=== PATIENT | male | born 1955 | race Caucasian/White ===

== ENCOUNTER 2016-11-10 10:15 | Emergency (ER) | payer OTHER ==
[2016-11-10] MEDS ORDERED: Nitroglycerin 0.4 MG TAB (25 Tab Bottle) ONE (10:29)
[2016-11-10] MEDS ORDERED: Metoprolol Tartrate 50 MG TAB ONE (10:49)
[2016-11-10] MEDS ORDERED: Nitroglycerin 2% Ointment 1 INCH/1 GM Packet ONE (10:49)
[2016-11-10 10:59] LABS: #Basophils 0.1 thou/uL (0.0-0.2); #Eosinphils 0.2 thou/uL (0.0-0.7); #Lymphocytes 4.9 thou/uL (1.20-3.40); #Monocytes 0.8 thou/uL (0.11-0.59); #Neutrophils 6.1 thou/uL (1.40-6.50); %Basophils 1.2 % (0.0-1.0); %Eosinophils 1.7 % (0.0-10.0); %Lymphocytes 40.5 % (21.0-51.0); %Monocytes 6.2 % (0.0-10.0); Hematocrit 43.6 % (42.0-52.0); Mean Platelet Volume 8.1 fL (7.4-10.4); Red Blood Cell (RBC) Count 4.69 mill/uL (4.70-6.10); White Blood Cell (WBC) Count 12.2 thou/uL (4.8-10.8)
[2016-11-10 11:02] LABS: Troponin I Less than 0.010 ng/mL (< 0.028)
--- NOTE | 2016-11-10 11:05 | RAD ---
AP SITTING CHEST ONE VIEW: History: 61-year-old male with chest pain, primarily mid sternal, worse when taking a breath. FINDINGS: Monitor leads overlie the chest. Heart size is normal. Atherosclerosis of the aorta. IMPRESSION: No acute intrathoracic disease. POS: [facility]
[2016-11-10 11:13] LABS: ALT (SGPT) 21 U/L (0-55); AST (SGOT) 26 U/L (5-34); Alkaline Phosphatase 112 U/L (40-150); Anion Gap 16 mmol/L (10-20); BUN (Urea Nitrogen) 7 mg/dL (8.4-25.7); Bilirubin, Total 0.4 mg/dL (0.2-1.2); Calc. Creatinine Clearance 0 mL/min (70-130); Calcium 9.4 mg/dL (7.8-10.44); Carbon Dioxide 21 mmol/L (23-31); Chloride 106 mmol/L (98-107); Estimated GFR-MDRD 78; Globulin 3.3 g/dL (2.4-3.5); Protein, Total 7.4 g/dL (5.8-8.1)
[2016-11-10 11:20] LABS: PTT 33.6 SEC (22.9-36.1); Prothrombin Time 12.9 SEC (12.0-14.7)
--- NOTE | 2016-11-10 12:58 | ERRECORD ---
[facility] EMERGENCY RECORD HPI CHEST PAIN (10:32 AGRE) CHIEF COMPLAINT: Patient presents for evaluation of chest pain. HISTORIAN: History provided by patient, WAS ABOUT TO START A SERVICE AT THE [employer] AND DEVELOPED PAIN IN THE CENTER OF HIS CHEST LIKE A SQUEEZING. THE PAIN DOES NOT RADIATE BUT HE HAD SOB, SWEATING, AND NAUSEA. HX OF HYPERTENSION AND HIGH CHOLESTEROL AND HAS BEEN OUT OF HIS MEDS FOR A MONTH. IS A SMOKER BUT NO ALCOHOL OR DRUGS. THE PAIN IS CONSTANT SINCE STARTING BUT WORST WITH EXERTION. NO HX OF CAD OR EXERTIONS CP OR SOB RECENTLY. HAD ONE EPISODE OFCHEST PAIN 6 YEARS AGO. LOCATION: Symptoms are localized, most severe in substernal area. QUALITY: Pain is dull in nature, described as a sensation of fullness, described as pressure-like. SEVERITY: Maximum severity of symptoms severe, Currently symptoms are severe. TIME COURSE: Sudden onset of symptoms, Symptoms are worsening. ASSOCIATED WITH: Associated with diaphoresis, Associated with nausea, Associated with shortness of breath, No associated trauma, No associated vomiting, Denies any other complaints. EXACERBATED BY: Patient's condition exacerbated by EXERTION. RELIEVED BY: Patient's condition relieved by nothing. RISK FACTORS: Coronary artery disease risk factors, include high cholesterol, include hypertension, include smoking, Thoracic aortic dissection risk factors, include hypertension, No pulmonary embolism risk factors. HEART SCORE: Patients history is Highly Suspicious (2), Patients age is greater than 45 and less than 65 (1), Patient has equal to or greater than 3 risk factors or history of atherosclerotic disease (2). WELLS CRITERIA FOR PE: No clinical signs and symptoms of a DVT (0), Patient does not have, or is likely to not have, a primary diagnosis of PE (0), Patient's heart rate is less than 100 (0), Patient has no history of immobilization within 3 days, nor any surgical history within the past 4 weeks (0), Patient has not had an objectively diagnosed PE or DVT previously (0), Patient does not have hemoptysis (0), Patient has not had treatment for malignancy within the last 6 months, nor palliative (0). ROS (10:35 AGRE) CONSTITUTIONAL: Historian denies chills, denies fever, denies weakness. EYES: Historian denies eye redness, denies vision changes. ENT: Historian denies sore throat, denies stridor. CARDIOVASCULAR: Historian reports chest pain, &a-1R&a+25V*p+0X*[id number]*c202B*c15G*c2P*p-0X&a-25V&a+1R Name: Bull Pratt : 1955 M61 MedRec: [id number] AcctNum: [id number] Prepared: WedNov 10, 2016 14:42 by Interface Page 1 of 5 pMD [facility] EMERGENCY RECORD substernal, no radiation, Historian reports diaphoresis, denies dyspnea on exertion, reports exercise intolerance. RESPIRATORY: Historian denies cough, reports shortness of breath, denies sputum, denies stridor, denies wheezing. GI: Historian denies abdominal pain, denies nausea, denies vomiting. MUSCULOSKELETAL: Historian denies back pain, denies neck pain. SKIN: Historian denies skin changes, denies skin lesions. NEUROLOGIC: Historian denies confusion, denies dizziness, denies focal weakness, denies headache. HEMO/LYMPHATIC: Normal hematologic/lymphatic system review, Historian denies petechiae. PSYCHIATRIC: Negative psychiatric review of systems, Historian denies anxiety. PAST MEDICAL HISTORY (10:23 JPAR) MEDICAL HISTORY: Past medical history includes history of hyperlipidemia, high cholesterol, Past medical history includes history of hypertension, No past medical history, Flu vaccine not up to date, Tetanus immunization up to date, Pneumococcal vaccine not up to date. MALE SURGICAL HISTORY: Laminectomy, back, Surgical history of carpal tunnel surgery, Notes: left, Surgical history of cholecystectomy, Surgical history of hernia repair, Notes 2 surgery, Surgical history of ileostomy. PSYCHIATRIC HISTORY: No previous psychiatric history. SOCIAL HISTORY: Patient denies alcohol use, Patient denies drug use, Patient currently uses tobacco, smokes cigarettes, Lives at home, with family. KNOWN ALLERGIES No Known Drug Allergy CURRENT MEDICATIONS (10:21 JPAR) Ambien: TABLET : Strength - 10 mg : ORAL Patient Dose: once a day. VITAL SIGNS VITAL SIGNS: Pulse: 77, Resp: 1`6, Temp: 97.9 (Oral), Pain: 7, O2 sat: 100, Time: 11/10/2016 10:19. (10:19 JPAR) BP: 181/95, Resp: 16, Time: 11/10/2016 10:21. (10:21 JPAR) BP: 130/80, Pulse: 71, Resp: 12, O2 sat: 99 on 2L Oxygen, Time: 11/10/2016 10:45. (10:45 JPAR) BP: 137/73, Pulse: 67, Resp: 14, Pain: 2, O2 sat: 99 on 2L Oxygen, Time: 11/10/2016 11:00. (11:00 JPAR) BP: 136/76, Pulse: 63, Resp: 15, Pain: 4, O2 sat: 99 on 2L Oxygen, Time: 11/10/2016 11:25. (11:25 JPAR) BP: 140/93, Pulse: 67, Resp: 15, Pain: 4, O2 sat: 99 on 2L Oxygen, Time: &a-1R&a+25V*p+0X*[id number]*c202B*c15G*c2P*p-0X&a-25V&a+1R Name: Bull Pratt : 1955 M61 MedRec: [id number] AcctNum: [id number] Prepared: WedNov 10, 2016 14:42 by Interface Page 2 of 5 pMD [facility] EMERGENCY RECORD 11/10/2016 11:42. (11:42 JPAR) BP: 148/79, Pulse: 62, Resp: 16, Pain: 4, O2 sat: 98 on 2L Oxygen, Time: 11/10/2016 12:33. (12:33 JPAR) PHYSICAL EXAM (10:37 AGRE) CONSTITUTIONAL: Patient appears, in moderate pain distress, CONSTANTLY RUBBING CENTER OF HIS CHEST, Vital signs reviewed, Patient afebrile, Respiratory rate normal, Patient appears non toxic, Patient alert and oriented to person, place and time, NURSES NOTES REVIEWED. HEAD: Head exam included findings of head atraumatic, normocephalic. EYES: Eye exam included findings of eyelids normal to inspection, Extraocular muscles intact, Conjunctiva normal, Sclera normal. ENT: Ear exam normal, Nose exam normal, Mouth exam normal. NECK: Neck exam normal, Neck exam included findings of normal range of motion, no meningeal signs, no cervical adenopathy. RESPIRATORY CHEST: Respiratory and chest exam normal, Respiratory exam included findings of no respiratory distress, Breath sounds clear, No wheezing, No rales, No rhonchi, Breath sounds not diminished. CARDIOVASCULAR: Cardiovascular exam included findings of heart rate regular rate and rhythm, Heart sounds normal, normal S1, normal S2, no murmurs, no rub, no gallop. ABDOMEN MALE: Abdominal exam normal, Abdominal exam included findings of abdomen nontender, Bowel sounds normal, Liver normal, Spleen normal, no distension, no mass. BACK: Back exam normal, Back exam included findings of normal inspection, range of motion normal. UPPER EXTREMITY: Upper extremity exam included findings of inspection normal, Range of motion normal. LOWER EXTREMITY: Lower extremity exam included findings of inspection normal, Range of motion normal, Motor strength normal, Kayla's negative, no edema, no calf tenderness, no palpable cords. NEURO: Neuro exam normal, Neuro exam findings include patient oriented to person, place and time, Speech normal, Gait normal, Memory normal, Cranial nerves intact, no focal motor deficits. SKIN: Skin exam normal, Skin exam included findings of skin warm, dry, and normal in color. LYMPHATIC: Lymphatic exam normal, Lymphatic exam included findings of cervical nodes normal. PSYCHIATRIC: Psychiatric exam normal, Normal affect. EKG INTERPRETATION (10:38 AGRE) 12 LEAD EKG INTERPRETATION: 12 lead EKG interpreted by Emergency Department Physician at time of study, 12 lead EKG shows normal sinus rhythm, Rate (beats per minute): 72, with no ectopics, Conduction normal, [place] normal, NON-SPECIFIC ST AND T CHANGES, BASELINE ARTIFACT. &a-1R&a+25V*p+0X*[id number]*c202B*c15G*c2P*p-0X&a-25V&a+1R Name: Bull Pratt : 1955 M61 MedRec: [id number] AcctNum: [id number] Prepared: WedNov 10, 2016 14:42 by Interface Page 3 of 5 pMD [facility] EMERGENCY RECORD RADIOLOGYINTERPRETATION (11:15 AGRE) CIRCUIT JUDGE: Preliminary review of x-rays by, Radiologist, IMPRESSION: No acute intrathoracic disease. MEDICATION ADMINISTRATION SUMMARY Drug Name: Nitro-Bid transdermal, Dose Ordered: 0.5 inch, Route: Topical, Status: Given, Time: 10:50 11/10/2016, Drug Name: Lopressor oral, Dose Ordered: 50 mg, Route: Oral, Status: Given, Time: 10:50 11/10/2016, Drug Name: *nitroglycerin sublingual, Dose Ordered: 0.4 mg, Route: Sublingual, Status: Given, Time: 10:31 11/10/2016, Drug Name: aspirin oral, Dose Ordered: 324 mg, Route: Oral, Status: Given, Time: 10:30 11/10/2016, *Additional information available in notes, Detailed record available in Medication Service section. DOCTOR NOTES RE-EVALUATION: Routine re-evaluation, after administration of analgesics, The patient's condition has improved. (11:17 AGRE) TEXT: BLOOD PRESSURE IMPROVED WITH NITRO AND THE CHEST PAIN RESOLVED. HE IS LOOKING AND FEELING MUCH BETTER AT THIS TIME. DISCUSSED WITH HIM FINDINGS ON EXAM, RESULTS OF HIS ED TEST, RECOMMENDATIONS FOR TRANSFER FOR ADMISSION DUE TO THE HX AND RISK FACTORS, HE EXPRESSED UNDERSTANDING AND AGREEMENT. (11:17 AGRE) CASE DISCUSSED WITH DR COREA WHO WILL ACCEPT THE PATIENT AT THE [facility]. (12:26 AGRE) PATIENT WAS GIVEN OPTION AND HE REQUESTED THE [facility] SAYS THAT IS WHERE HE USUALLY GOES. (14:38 AGRE) HEART SCORE: Patients history is Highly Suspicious (2), Patients ECG has Non specific repolarisation disturbance/LBTB/PM (1), Patients age is greater than 45 and less than 65 (1), Patient has equal to or greater than 3 risk factors or history of atherosclerotic disease (2), Patients Troponin is equal to or less than 1 times the normal limit (0), Total 6. (11:17 AGRE) PATIENT STATUS: Patient has improved since arrival to emergency department. (11:17 AGRE) PATIENT PLAN: The patient requires a transfer and will be transferred. (11:17 AGRE) DATA REVIEWED: Lab data reviewed, Xray data reviewed, Reviewed EKG. (11:17 AGRE) Discussed with consultants. (12:26 AGRE) PROBLEM LIST No recorded problems DIAGNOSIS (11:16 AGRE) FINAL: PRIMARY: Precordial Chest Pain. &a-1R&a+25V*p+0X*[id number]*c202B*c15G*c2P*p-0X&a-25V&a+1R Name: Bull Pratt : 1955 M61 MedRec: [id number] AcctNum: [id number] Prepared: WedNov 10, 2016 14:42 by Interface Page 4 of 5 pMD [facility] EMERGENCY RECORD PRESCRIPTION No recorded prescriptions DISPOSITION PATIENT: Disposition Type: Transfer, Disposition: [facility], Condition: Improved. (11:16 AGRE) Patient left the department. (12:52 MARYSE) Garner: AGRE=MD Taj, Alejandro SERRA=SRAVANI Fuller, Fredo &a-1R&a+25V*p+0X*q8847X*c202B*c15G*c2P*p-0X&a-25V&a+1R Name: PrattBull : 1955 M61 MedRec: [id number] AcctNum: [id number] Prepared: WedNov 10, 2016 14:42 by Interface Page 5 of 5 pMD [facility]TDD
--- NOTE | 2016-11-10 13:03 | PICIS ---
[facility] EMERGENCY RECORD TRIAGE (10:21 JPAR) TRIAGE NOTES: Chest Pain started suddenly mid sternal, hurts when taking a deep breath. (10:21 JPAR) PATIENT: NAME: Bull Pratt, AGE: 61, GENDER: male, : Wed1955, TIME OF GREET: WedNov 10, 2016 10:16, PREFERRED LANGUAGE: Vietnamese, ETHNICITY: Not or , ECODE BILLING MAP: [facility], SSN: [id number], Zip Code: [address], KG WEIGHT: 79.38, PHONE: , , , PERSON ID: [id number], PCP: Rick BLUE POLLACHI. (10:21 JPAR) COMPLAINT: HIGH RISK COMPLAINT: CHEST PAIN. (10:21 JPAR) ADMISSION: URGENCY: 2 Emergent, ADMISSION SOURCE: Work, TRANSPORT: CAR, BED: TRIAGE. (10:21 JPAR) ASSESSMENT: Assessment: mid sternal chest pain worse when taking deep breaths, Symptoms began 20 minutes, Symptoms began 30 min ago. (10:23 JPAR) IMMUNIZATIONS: Flu vaccine not up to date, Tetanus immunization up to date, Pneumococcal vaccine not up to date. (10:23 JPAR) SIRS SCORING: Heart Rate 55-109 (0), Temp range 96.8-101.1 (0), respiratory rate 12-24 (0), Mental Status altered: no (0), Infection or Suspected Infection: No. (10:23 JPAR) TRIAGE SCREENING: Patient denies suicidal ideation, Patient denies presence of domestic violence. (10:23 JPAR) PROVIDERS: TRIAGE NURSE: Fredo Fuller RN. (10:21 JPAR) VITAL SIGNS: Pulse 77, Resp 1`6, Temp 97.9, (Oral), Pain 7, O2 Sat 100, Time 11/10/2016 10:19. (10:19 JPAR) PREVIOUS VISIT ALLERGIES: No Known Drug Allergy. (10:21 JPAR) No Known Drug Allergy. (10:23 JPAR) KNOWN ALLERGIES No Known Drug Allergy CURRENT MEDICATIONS (10:21 JPAR) Ambien: TABLET : Strength - 10 mg : ORAL Patient Dose: once a day. VITAL SIGNS VITAL SIGNS: Pulse: 77, Resp: 1`6, Temp: 97.9 (Oral), Pain: 7, O2 sat: 100, Time: 11/10/2016 10:19. (10:19 JPAR) BP: 181/95, Resp: 16, Time: 11/10/2016 10:21. (10:21 JPAR) BP: 130/80, Pulse: 71, Resp: 12, O2 sat: 99 on 2L Oxygen, Time: 11/10/2016 10:45. (10:45 JPAR) BP: 137/73, Pulse: 67, Resp: 14, Pain: 2, O2 sat: 99 on 2L Oxygen, Time: 11/10/2016 11:00. (11:00 JPAR) BP: 136/76, Pulse: 63, Resp: 15, Pain: 4, O2 sat: 99 on 2L Oxygen, Time: 11/10/2016 11:25. (11:25 JPAR) BP: 140/93, Pulse: 67, Resp: 15, Pain: 4, O2 sat: 99 on 2L Oxygen, Time: 11/10/2016 11:42. (11:42 JPAR) &a-1R&a+25V*p+0X*j9604B*c202B*c15G*c2P*p-0X&a-25V&a+1R Name: Bull Pratt : 1955 M61 MedRec: [id number] AcctNum: [id number] Prepared: Jayme Nov 10, 2016 14:42 by Interface Page 1 of 13 pMD [facility] EMERGENCY RECORD BP: 148/79, Pulse: 62, Resp: 16, Pain: 4, O2 sat: 98 on 2L Oxygen, Time: 11/10/2016 12:33. (12:33 JPAR) NURSING ASSESSMENT: CARDIOVASCULAR CONSTITUTIONAL: Patient arrives ambulatory, Gait steady, History obtained from patient, Patient appears comfortable, Patient cooperative, Patient alert, Oriented to person, place and time, Skin warm, Skin dry, Skin normal in color, Mucous membranes pink, Mucous membranes moist, Patient complains of Chest pain mid sternal, pain worsens when taking deep breath. (10:21 JPAR) PAIN: aching pain, burning pain, cramping pain, midsternal, on a scale 0-10 patient rates pain as 7. (10:21 JPAR) aching pain, midsternal, on a scale 0-10 patient rates pain as 2. (10:55 JPAR) CARDIOVASCULAR: Cardiovascular assessment findings include heart rate normal, Heart rhythm normal sinus, Heart sounds normal, Bilateral blood pressures equal, Left radial pulse +3(easily palpated, considered normal), Right radial pulse +3(easily palpated, considered normal), Left dorsalis pedis pulse +3(easily palpated, considered normal), Right dorsalis pedis pulse +3(easily palpated, considered normal), Associated with diaphoresis, no associated dyspnea, no associated dizziness, no associated edema, no associated palpitations, no associated paresthesias, no associated syncopal episode, no associated weakness, No history of pulmonary embolism, No history of DVT or leg swelling. (10:21 JPAR) Cardiovascular assessment findings include heart rate normal, Heart rhythm normal sinus, Heart sounds normal, Bilateral blood pressures equal, Left radial pulse +3(easily palpated, considered normal), Right radial pulse +3(easily palpated, considered normal), Left dorsalis pedis pulse +3(easily palpated, considered normal), Right dorsalis pedis pulse +3(easily palpated, considered normal), No associated diaphoresis, no associated dyspnea, no associated dizziness, no associated edema, no associated palpitations, no associated paresthesias, no associated syncopal episode, no associated weakness, No history of pulmonary embolism, No history of DVT or leg swelling. (10:55 JPAR) RESPIRATORY/CHEST: Breath sounds clear, Respiratory assessment findings include respiratory effort easy, Respirations regular, Conversing normally, Neck and chest exam findings include trachea midline, Chest expansion equal, Chest movement symmetrical, no signs of distress, no retractions noted, no cyanosis, no jugular vein distension, no tenderness to palpation, no crepitus noted, no subcutaneous emphysema noted, no deformity noted, no associated cough noted, no associated fever, no associated fume exposure. (10:21 JPAR) Breath sounds clear, Respiratory assessment findings include respiratory effort easy, Respirations regular, Conversing normally, Neck and chest exam findings include trachea midline, Chest expansion equal, Chest movement symmetrical, no signs of distress, no retractions noted, no cyanosis, no jugular vein distension, no tenderness to &a-1R&a+25V*p+0X*l5059I*c202B*c15G*c2P*p-0X&a-25V&a+1R Name: Bull Pratt : 1955 M61 MedRec: [id number] AcctNum: [id number] Prepared: WedNov 10, 2016 14:42 by Interface Page 2 of 13 pMD [facility] EMERGENCY RECORD palpation, no crepitus noted, no subcutaneous emphysema noted, no deformity noted, no associated cough noted, no associated fever, no associated fume exposure. (10:55 JPAR) SAFETY: Side rails up, Cart/Stretcher in lowest position, Call light within reach, Hospital ID band on. (10:21 JPAR) NURSING PROCEDURE: BEDSIDE RADIOLOGY (10:36 CCRI) BEDSIDE RADIOLOGY: Bedside radiology performed by CC, Portable chest x-ray performed. NURSING PROCEDURE: CRIME SCENE ANALYST (10:21 JPAR) PATIENT IDENTIFIER: Patient actively involved in identification process, Patient's identity verified by patient stating name, Patient's identity verified by patient stating date, Patient's identity verified by hospital ID bracelet, Patient's identity verified by family member. CRIME SCENE ANALYST: Cardiac monitoring indicated for complaint of chest pain, Patient placed on compliance monitor, Heart rate: 77, showing normal sinus rhythm, without ectopy, with no ST segment changes, Patient placed on non-invasive blood pressure monitor, with disposable blood pressure cuff applied, Patient placed on continuous pulse oximetry, Adult/pediatric oxisensor applied, Oxygen saturation 99%. SAFETY: Side rails up, Cart/Stretcher in lowest position, Call light within reach, Hospital ID band on. NURSING PROCEDURE: EKG CHART (10:21 JPAR) PATIENT IDENTIFIER: Patient actively involved in identification process, Patient's identity verified by patient stating name, Patient's identity verified by patient stating date, Patient's identity verified by hospital ID bracelet, Patient's identity verified by family member. EKG: EKG indicated for complaint of chest pain, 12 lead EKG performed on the left chest, done by first ANN KirkG. FOLLOW-UP: After procedure, EKG for interpretation given to Dr. Vang. SAFETY: Side rails up, Cart/Stretcher in lowest position, Call light within reach, Hospital ID band on. NURSING PROCEDURE: IV PATIENT IDENITIFIER: Patient actively involved in identification process, Patient's identity verified by patient stating name, Patient's identity verified by patient stating date, Patient's identity verified by hospital ID bracelet, Patient's identity verified by family member. (10:22 JPAR) IV SITE 1: IV therapy indicated for hydration, IV therapy indicated for medication administration, IV established, to the left hand, using a 20 gauge catheter, in one attempt, IV site prepped with clorohexaphine, Saline lock established, Flushed with normal saline (mls): 10, Labs drawn at time of placement, labeled in the presence &a-1R&a+25V*p+0X*b8943U*c202B*c15G*c2P*p-0X&a-25V&a+1R Name: Bull Pratt : 1955 M61 MedRec: [id number] AcctNum: [id number] Prepared: WedNov 10, 2016 14:42 by Interface Page 3 of 13 pMD [facility] EMERGENCY RECORD of the patient and sent to lab, Notes: IV by Sendy LASSITER. (10:22 JPAR) FOLLOW-UP SITE 1: After procedure, 2x3 ensure dressing applied, After procedure, no drainage at IV site, After procedure, no swelling at IV site, After procedure, no redness at IV site, Notes: Iv Patent at time of transfer no signs of infiltration. (12:50 JPAR) SAFETY: Side rails up, Cart/Stretcher in lowest position, Family at bedside, Call light within reach, Hospital ID band on. (10:22 JPAR) NURSING PROCEDURE: NURSE NOTES (10:46 JPAR) NURSES NOTES: Notes: 2nd Nitro Sl administered, MD advised to hold the 3rd one and give paste. NURSING PROCEDURE: OXYGEN THERAPY (10:25 JPAR) PATIENT IDENTIFIER: Patient actively involved in identification process, Patient's identity verified by patient stating name, Patient's identity verified by patient stating date, Patient's identity verified by hospital ID bracelet. OXYGEN THERAPY: Oxygen therapy indicated for Chest Pain, Prior to procedure, breath sounds clear, Oxygen saturation 99%, by adult/pediatric oxisensor, 2L oxygen given, via nasal cannula applied. SAFETY: Side rails up, Cart/Stretcher in lowest position, Call light within reach, Hospital ID band on. NURSING PROCEDURE: TRANSFER (12:50 JPAR) TRANSFER: Reason for transfer patient request, Reason for transfer need for specialized care, Diagnosis: Chest Pain, Accepting institution: [facility], Accepting physician: Denise, Referring physician: Taj, Transported by urgent ambulance, accompanied by emergency medical services personnel, Report called to receiving facility, [facility], Provided opportunity to answer questions, Summary of Care printed, Medication reconciliation form prepared and sent to receiving facility, Patient consent for transfer signed, Family member contacted, at bedside. BELONGINGS: Belongings and valuables with patient at time of discharge include:, Belongings remain with patient, Valuables remain with patient. EQUIPMENT WITH PATIENT: Equipment with patient at time of transfer compliance monitor, Saline lock intact and patent at time of transfer. SAFETY: Side rails up, Cart/Stretcher in lowest position, Family at bedside, Call light within reach, Hospital ID band on. ORDER DETAILS Order Name: B type Natriuretic Peptide, Status: Active, Time: 10:11/10/2016, User: PEYTON, &a-1R&a+25V*p+0X*d4125G*c202B*c15G*c2P*p-0X&a-25V&a+1R Name: Bull Pratt : 1955 M61 MedRec: [id number] AcctNum: [id number] Prepared: WedNov 10, 2016 14:42 by Interface Page 4 of 13 pMD [facility] EMERGENCY RECORD - Ordered for: MD Vang Andrea, - Entered by: MD Vang Andrea - Jayme Nov 10, 2016 10:31, - Quantity: 1, Order Name: CRIME SCENE ANALYST ED, Status: Done, Time: 10:11/10/2016, User: MARYSE, - Ordered for: MD Vang Andrea, - Entered by: MD Vang Andrea - Jayme Nov 10, 2016 10:31, - Quantity: 1, Order Name: Cardiac Profile w/CKMB & Troponin - I, Status: Active, Time: 10:31 11/10/2016, User: PEYTON, - Ordered for: MD Vang Andrea, - Entered by: MD Vang Andrea - Tue Nov 10, 2016 10:31, - Quantity: 1, Order Name: CBC with Differential, Status: Active, Time: 10:31 11/10/2016, User: PEYTON, - Ordered for: MD Vang Andrea, - Entered by: MD Vang Andrea - Tue Nov 10, 2016 10:31, - Quantity: 1, Order Name: Comprehensive Metabolic Panel, Status: Active, Time: 10:31 11/10/2016, User: PEYTON, - Ordered for: MD Vang Andrea, - Entered by: MD Vang Andrea - Tue Nov 10, 2016 10:31, - Quantity: 1, Order Name: D-Dimer (Quantitative), Status: Active, Time: 10:31 11/10/2016, User: PEYTON, - Ordered for: MD Vang Andrea, - Entered by: MD Vang Andrea - edwin Nov 10, 2016 10:31, - Quantity: 1, Order Name: EKG 12 Lead in Emergency Room, Status: Active, Time: 10:31 11/10/2016, User: PEYTON, - Ordered for: MD Vang Andrea, - Entered by: MD Vang Andrea edwin Nov 10, 2016 10:31, - Quantity: 1, Order Name: Protime with INR, Status: Active, Time: 10:31 11/10/2016, User: PEYTON, - Ordered for: MD Vang Andrea, - Entered by: MD Vang Andrea - Tue Nov 10, 2016 10:31, - Quantity: 1, Order Name: PTT, Status: Active, Time: 10:31 11/10/2016, User: PEYTON, - Ordered for: MD Vang Andrea, - Entered by: MD Vang Andrea - Tue Nov 10, 2016 10:31, - Quantity: 1, Order Name: SALINE LOCK, Status: Done, Time: 10:32 11/10/2016, User: MARYSE, - Ordered for: MD Vang Andrea, - Entered by: MD Vang Andrea - Tue Nov 10, 2016 10:31, - Quantity: 1, Order Name: XR Chest 1 View Portable, Status: Active, Time: 10:31 11/10/2016, User: PEYTON, - Ordered for: MD Taj, Alejandro, &a-1R&a+25V*p+0X*d9574K*c202B*c15G*c2P*p-0X&a-25V&a+1R Name: Bull Pratt : 1955 M61 MedRec: [id number] AcctNum: [id number] Prepared: WedNov 10, 2016 14:42 by Interface Page 5 of 13 pMD [facility] EMERGENCY RECORD - Entered by: MD Vang Andrea - edwin Nov 10, 2016 10:31, - Quantity: 1. MEDICATION ADMINISTRATION SUMMARY Drug Name: Nitro-Bid transdermal, Dose Ordered: 0.5 inch, Route: Topical, Status: Given, Time: 10:50 11/10/2016, Drug Name: Lopressor oral, Dose Ordered: 50 mg, Route: Oral, Status: Given, Time: 10:50 11/10/2016, Drug Name: *nitroglycerin sublingual, Dose Ordered: 0.4 mg, Route: Sublingual, Status: Given, Time: 10:31 11/10/2016, Drug Name: aspirin oral, Dose Ordered: 324 mg, Route: Oral, Status: Given, Time: 10:30 11/10/2016, *Additional information available in notes, Detailed record available in Medication Service section. MEDICATION SERVICE aspirin oral: Order: aspirin oral (aspirin) - Dose: 324 mg : Oral Ordered by: Alejandro Vang MD Entered by: Alejandro Vang MD WedNov 10, 2016 10:31 Documented as given by: Fredo Fuller RN WedNov 10, 2016 10:30 Patient, Medication, Dose, Route and Time verified prior to administration. Patient appears Awake and alert- acceptable, Correct patient, time, route, dose and medication confirmed prior to administration, Patient advised of actions and side-effects prior to administration, Allergies confirmed and medications reviewed prior to administration, Patient in position of comfort, Side rails up, Cart in lowest position, Family at bedside, Call light in reach. Lopressor oral: Order: Lopressor oral (metoprolol tartrate) - Dose: 50 mg : Oral Ordered by: Alejandro Vang MD Entered by: Alejandro Vang MD WedNov 10, 2016 10:46 , Acknowledged by: Fredo Fuller RN WedNov 10, 2016 10:48 Documented as given by: Fredo Fuller RN WedNov 10, 2016 10:50 Patient, Medication, Dose, Route and Time verified prior to administration. Patient appears Awake and alert- acceptable, Correct patient, time, route, dose and medication confirmed prior to administration, Patient advised of actions and side-effects prior to administration, Allergies confirmed and medications reviewed prior to administration, Patient in position of comfort, Side rails up, Cart in lowest position, Family at bedside, Call light in reach. Nitro-Bid transdermal: Order: Nitro-Bid transdermal (nitroglycerin) - Dose: 0.5 inch : Topical Ordered by: Alejandro Vang MD Entered by: Alejandro Vang MD WedNov 10, 2016 10:47 , Acknowledged by: Fredo Fuller RN WedNov 10, 2016 10:48 Documented as given by: Fredo Fuller RN WedNov 10, 2016 10:50 Patient, Medication, Dose, Route and Time verified prior to &a-1R&a+25V*p+0X*n4694J*c202B*c15G*c2P*p-0X&a-25V&a+1R Name: Bull Pratt : 1955 M61 MedRec: [id number] AcctNum: [id number] Prepared: WedNov 10, 2016 14:42 by Interface Page 6 of 13 pMD [facility] EMERGENCY RECORD administration. Skin cleansed prior to administration, Shaving required prior to administration, Correct patient, time, route, dose and medication confirmed prior to administration, Patient advised of actions and side-effects prior to administration, Allergies confirmed and medications reviewed prior to administration, Advised not to ambulate without assistance, Patient in position of comfort, Side rails up, Cart in lowest position, Family at bedside. nitroglycerin sublingual: Order: nitroglycerin sublingual (nitroglycerin) - Dose: 0.4 mg : Sublingual Schedule: Every 5 minutes Notes: X 3 WITH BLOOD PRESSURE GREATER THAN 100 SYSTOLIC Ordered by: Alejandro Vang MD Entered by: Alejandro Vang MD WedNov 10, 2016 10:31 Documented as given by: Fredo Fuller RN WedNov 10, 2016 10:31 Patient, Medication, Dose, Route and Time verified prior to administration. Patient appears Awake and alert- acceptable, Correct patient, time, route, dose and medication confirmed prior to administration, Patient advised of actions and side-effects prior to administration, Allergies confirmed and medications reviewed prior to administration, Patient in position of comfort, Side rails up, Cart in lowest position, Family at bedside, Call light in reach. HPI CHEST PAIN (10:32 AGRE) CHIEF COMPLAINT: Patient presents for evaluation of chest pain. HISTORIAN: History provided by patient, WAS ABOUT TO START A SERVICE AT THE [employer] AND DEVELOPED PAIN IN THE CENTER OF HIS CHEST LIKE A SQUEEZING. THE PAIN DOES NOT RADIATE BUT HE HAD SOB, SWEATING, AND NAUSEA. HX OF HYPERTENSION AND HIGH CHOLESTEROL AND HAS BEEN OUT OF HIS MEDS FOR A MONTH. IS A SMOKER BUT NO ALCOHOL OR DRUGS. THE PAIN IS CONSTANT SINCE STARTING BUT WORST WITH EXERTION. NO HX OF CAD OR EXERTIONS CP OR SOB RECENTLY. HAD ONE EPISODE OFCHEST PAIN 6 YEARS AGO. LOCATION: Symptoms are localized, most severe in substernal area. QUALITY: Pain is dull in nature, described as a sensation of fullness, described as pressure-like. SEVERITY: Maximum severity of symptoms severe, Currently symptoms are severe. TIME COURSE: Sudden onset of symptoms, Symptoms are worsening. ASSOCIATED WITH: Associated with diaphoresis, Associated with nausea, Associated with shortness of breath, No associated trauma, No associated vomiting, Denies any other complaints. EXACERBATED BY: Patient's condition exacerbated by EXERTION. RELIEVED BY: Patient's condition relieved by nothing. &a-1R&a+25V*p+0X*a4178K*c202B*c15G*c2P*p-0X&a-25V&a+1R Name: Bull Pratt : 1955 M61 MedRec: [id number] AcctNum: [id number] Prepared: WedNov 10, 2016 14:42 by Interface Page 7 of 13 pMD [facility] EMERGENCY RECORD RISK FACTORS: Coronary artery disease risk factors, include high cholesterol, include hypertension, include smoking, Thoracic aortic dissection risk factors, include hypertension, No pulmonary embolism risk factors. HEART SCORE: Patients history is Highly Suspicious (2), Patients age is greater than 45 and less than 65 (1), Patient has equal to or greater than 3 risk factors or history of atherosclerotic disease (2). WELLS CRITERIA FOR PE: No clinical signs and symptoms of a DVT (0), Patient does not have, or is likely to not have, a primary diagnosis of PE (0), Patient's heart rate is less than 100 (0), Patient has no history of immobilization within 3 days, nor any surgical history within the past 4 weeks (0), Patient has not had an objectively diagnosed PE or DVT previously (0), Patient does not have hemoptysis (0), Patient has not had treatment for malignancy within the last 6 months, nor palliative (0). ROS (10:35 AGRE) CONSTITUTIONAL: Historian denies chills, denies fever, denies weakness. EYES: Historian denies eye redness, denies vision changes. ENT: Historian denies sore throat, denies stridor. CARDIOVASCULAR: Historian reports chest pain, substernal, no radiation, Historian reports diaphoresis, denies dyspnea on exertion, reports exercise intolerance. RESPIRATORY: Historian denies cough, reports shortness of breath, denies sputum, denies stridor, denies wheezing. GI: Historian denies abdominal pain, denies nausea, denies vomiting. MUSCULOSKELETAL: Historian denies back pain, denies neck pain. SKIN: Historian denies skin changes, denies skin lesions. NEUROLOGIC: Historian denies confusion, denies dizziness, denies focal weakness, denies headache. HEMO/LYMPHATIC: Normal hematologic/lymphatic system review, Historian denies petechiae. PSYCHIATRIC: Negative psychiatric review of systems, Historian denies anxiety. PAST MEDICAL HISTORY (10:23 JPAR) MEDICAL HISTORY: Past medical history includes history of hyperlipidemia, high cholesterol, Past medical history includes history of hypertension, No past medical history, Flu vaccine not up to date, Tetanus immunization up to date, Pneumococcal vaccine not up to date. MALE SURGICAL HISTORY: Laminectomy, back, Surgical history of carpal tunnel surgery, Notes: left, Surgical history of cholecystectomy, Surgical history of hernia repair, Notes 2 surgery, Surgical history of ileostomy. &a-1R&a+25V*p+0X*o4678C*c202B*c15G*c2P*p-0X&a-25V&a+1R Name: Bull Pratt : 1955 M61 MedRec: [id number] AcctNum: [id number] Prepared: WedNov 10, 2016 14:42 by Interface Page 8 of 13 pMD [facility] EMERGENCY RECORD PSYCHIATRIC HISTORY: No previous psychiatric history. SOCIAL HISTORY: Patient denies alcohol use, Patient denies drug use, Patient currently uses tobacco, smokes cigarettes, Lives at home, with family. PHYSICAL EXAM (10:37 AGRE) CONSTITUTIONAL: Patient appears, in moderate pain distress, CONSTANTLY RUBBING CENTER OF HIS CHEST, Vital signs reviewed, Patient afebrile, Respiratory rate normal, Patient appears non toxic, Patient alert and oriented to person, place and time, NURSES NOTES REVIEWED. HEAD: Head exam included findings of head atraumatic, normocephalic. EYES: Eye exam included findings of eyelids normal to inspection, Extraocular muscles intact, Conjunctiva normal, Sclera normal. ENT: Ear exam normal, Nose exam normal, Mouth exam normal. NECK: Neck exam normal, Neck exam included findings of normal range of motion, no meningeal signs, no cervical adenopathy. RESPIRATORY CHEST: Respiratory and chest exam normal, Respiratory exam included findings of no respiratory distress, Breath sounds clear, No wheezing, No rales, No rhonchi, Breath sounds not diminished. CARDIOVASCULAR: Cardiovascular exam included findings of heart rate regular rate and rhythm, Heart sounds normal, normal S1, normal S2, no murmurs, no rub, no gallop. ABDOMEN MALE: Abdominal exam normal, Abdominal exam included findings of abdomen nontender, Bowel sounds normal, Liver normal, Spleen normal, no distension, no mass. BACK: Back exam normal, Back exam included findings of normal inspection, range of motion normal. UPPER EXTREMITY: Upper extremity exam included findings of inspection normal, Range of motion normal. LOWER EXTREMITY: Lower extremity exam included findings of inspection normal, Range of motion normal, Motor strength normal, Kayla's negative, no edema, no calf tenderness, no palpable cords. NEURO: Neuro exam normal, Neuro exam findings include patient oriented to person, place and time, Speech normal, Gait normal, Memory normal, Cranial nerves intact, no focal motor deficits. SKIN: Skin exam normal, Skin exam included findings of skin warm, dry, and normal in color. LYMPHATIC: Lymphatic exam normal, Lymphatic exam included findings of cervical nodes normal. PSYCHIATRIC: Psychiatric exam normal, Normal affect. LAB INTERPRETATION INTERPRETATION: Chemistry abnormal, BUN decreased, Bicarbonate decreased. (11:15 AGRE) CBC abnormal, White blood cell count elevated, Platelets elevated, Cardiac enzymes normal, D-dimer negative. (11:04 AGRE) &a-1R&a+25V*p+0X*q9952T*c202B*c15G*c2P*p-0X&a-25V&a+1R Name: Bull Pratt : 1955 M61 MedRec: [id number] AcctNum: [id number] Prepared: WedNov 10, 2016 14:42 by Interface Page 9 of 13 [facility] EMERGENCY RECORD EVENTS TRANSFER: Triage to Emergency Triage. (WedNov 10, 2016 10:21 JPAR) Emergency Triage to Emergency Room *TR1. (10:21 JPAR) Removed from Emergency Emergency Room *TR1. (12:52 JPAR) RADIOLOGYINTERPRETATION (11:15 AGRE) BIT TRIPOLER: Preliminary review of x-rays by, Radiologist, IMPRESSION: No acute intrathoracic disease. EKG INTERPRETATION (10:38 AGRE) 12 LEAD EKG INTERPRETATION: 12 lead EKG interpreted by Emergency Department Physician at time of study, 12 lead EKG shows normal sinus rhythm, Rate (beats per minute): 72, with no ectopics, Conduction normal, [place] normal, NON-SPECIFIC ST AND T CHANGES, BASELINE ARTIFACT. O2SAT INTERPRETATION (10:38 AGRE) O2SAT: Continuous pulse oximetry, Oxygen saturation 100%, on room air, Oxygen saturation interpretation: Normal, No intervention required. DOCTOR NOTES RE-EVALUATION: Routine re-evaluation, after administration of analgesics, The patient's condition has improved. (11:17 AGRE) TEXT: BLOOD PRESSURE IMPROVED WITH NITRO AND THE CHEST PAIN RESOLVED. HE IS LOOKING AND FEELING MUCH BETTER AT THIS TIME. DISCUSSED WITH HIM FINDINGS ON EXAM, RESULTS OF HIS ED TEST, RECOMMENDATIONS FOR TRANSFER FOR ADMISSION DUE TO THE HX AND RISK FACTORS, HE EXPRESSED UNDERSTANDING AND AGREEMENT. (11:17 AGRE) CASE DISCUSSED WITH DR COREA WHO WILL ACCEPT THE PATIENT AT THE [facility]. (12:26 AGRE) PATIENT WAS GIVEN OPTION AND HE REQUESTED THE [facility] SAYS THAT IS WHERE HE USUALLY GOES. (14:38 AGRE) HEART SCORE: Patients history is Highly Suspicious (2), Patients ECG has Non specific repolarisation disturbance/LBTB/PM (1), Patients age is greater than 45 and less than 65 (1), Patient has equal to or greater than 3 risk factors or history of atherosclerotic disease (2), Patients Troponin is equal to or less than 1 times the normal limit (0), Total 6. (11:17 AGRE) PATIENT STATUS: Patient has improved since arrival to emergency department. (11:17 AGRE) PATIENT PLAN: The patient requires a transfer and will be transferred. (11:17 AGRE) DATA REVIEWED: Lab data reviewed, Xray data reviewed, Reviewed EKG. (11:17 AGRE) Discussed with consultants. (12:26 AGRE) &a-1R&a+25V*p+0X*[id number]*c202B*c15G*c2P*p-0X&a-25V&a+1R Name: Bull Pratt : 1955 M61 MedRec: [id number] AcctNum: [id number] Prepared: WedNov 10, 2016 14:42 by Interface Page 10 of 13 pMD [facility] EMERGENCY RECORD PROBLEM LIST No recorded problems DIAGNOSIS (11:16 AGRE) FINAL: PRIMARY: Precordial Chest Pain. DISPOSITION PATIENT: Disposition Type: Transfer, Disposition: [facility], Condition: Improved. (11:16 AGRE) Patient left the department. (12:52 JPAR) PRESCRIPTION No recorded prescriptions IMAGING *MEMORANDUM OF TRANSFER: Image captured from scanner. (12:21 JPAR) CONSENTS: Image captured from scanner. (12:28 JPAR) *EKG: Image captured from scanner. (12:28 JPAR) ADMIN DIGITAL SIGNATURE: SRAVANI Fuller, Fredo. (12:52 JPAR) MD Vang Andrea. (14:39 AGRE) RESULTS RADIOLOGY: XR Chest 1 View Portable Observe DT: WedNov 10, 2016 10:33, CXRP AP SITTING CHEST ONE VIEW: History: 61-year-old male with chest pain, primarily mid sternal, worse when taking a breath. FINDINGS: Monitor leads overlie the chest. Heart size is normal. Atherosclerosis of the aorta. IMPRESSION: No acute intrathoracic disease. POS: [facility] . (11:15 AGRE) LABORATORY: CBC with Differential Collection DT: WedNov 10, 2016 10:49, *White Blood Cell (WBC) Count 12.2 - H thou/uL, Range (4.8-10.8), *Red Blood Cell (RBC) Count 4.69 - L mill/uL, Range (4.70-6.10), Hemoglobin 14.2 g/dL, Range (14.0-18.0), &a-1R&a+25V*p+0X*d3635C*c202B*c15G*c2P*p-0X&a-25V&a+1R Name: Bull Pratt : 1955 M61 MedRec: [id number] AcctNum: [id number] Prepared: WedNov 10, 2016 14:42 by Interface Page 11 of 13 pMD [facility] EMERGENCY RECORD Hematocrit 43.6 %, Range (42.0-52.0), Mean Corpuscular Volume 93.0 fl, Range (80.0-94.0), Mean Corpuscular Hemoglobin 30.3 pg, Range (27.0-31.0), Mean Corpuscular HGB CONC 32.6 g/dL, Range (32.0-36.0), RBC Distribution Width 13.0 %, Range (11.5-14.5), *Platelet Count 453 - H thou/uL, Range (130-400), Mean Platelet Volume 8.1 fL, Range (7.4-10.4), %Neutrophils 50.4 %, Range (42.0-75.0), %Lymphocytes 40.5 %, Range (21.0-51.0), %Monocytes 6.2 %, Range (0.0-10.0), %Eosinophils 1.7 %, Range (0.0-10.0), *%Basophils 1.2 - H %, Range (0.0-1.0), #Neutrophils 6.1 thou/uL, Range (1.40-6.50), *#Lymphocytes 4.9 - H thou/uL, Range (1.20-3.40), *#Monocytes 0.8 - H thou/uL, Range (0.11-0.59), #Eosinphils 0.2 thou/uL, Range (0.0-0.7), #Basophils 0.1 thou/uL, Range (0.0-0.2). (11:03 [facility]) Cardiac Profile w/CKMB & TropI Collection DT: WedNov 10, 2016 10:49, CKMB 3.5 ng/mL, Range (0-6.6), Troponin I Less than 0.010 ng/mL, Range (< 0.028), Reference Range , 0.00 - 0.028 ng/mL Negative 0.029 - 0.29 ng/mL , Indeterminate Greater or Equal to 0.3 ng/mL Strongly suggests [place] , . (11:03 [facility]) Comprehensive Metabolic Panel Collection DT: WedNov 10, 2016 10:49, Sodium 139 mmol/L, Range (136-145), Potassium 3.7 mmol/L, Range (3.5-5.1), Chloride 106 mmol/L, Range (98-107), *Carbon Dioxide 21 - L mmol/L, Range (23-31), Anion Gap 16 mmol/L, Range (10-20), *BUN (Urea Nitrogen) 7 - L mg/dL, Range (8.4-25.7), Creatinine 0.98 mg/dL, Range (0.7-1.3), Estimated GFR-MDRD 78 , Reference Range for Estimated GFR: Greater than 90, mL/min/1.73 m2 NOTE: The MDRD equation has not been validated for use, with the elderly (over 70 years of age), women, patients with, serious comorbid condition or persons with extremes of body size, muscle, mass, or nutritional status. , Glucose 88 mg/dL, Range (80-115), Calcium 9.4 mg/dL, Range (7.8-10.44), Bilirubin, Total 0.4 mg/dL, Range (0.2-1.2), Protein, Total 7.4 g/dL, Range (5.8-8.1), NOTE: Plasma values are generally 0.3 to 0.5 g/dL higher than serum values, due to the presence of fibrinogen. , Albumin 4.1 g/dL, Range (3.4-4.8), Globulin 3.3 g/dL, Range (2.4-3.5), &a-1R&a+25V*p+0X*u6776U*c202B*c15G*c2P*p-0X&a-25V&a+1R Name: Bull Pratt : 1955 M61 MedRec: [id number] AcctNum: [id number] Prepared: WedNov 10, 2016 14:42 by Interface Page 12 of 13 pMD [facility] EMERGENCY RECORD Alb/Glob Ratio 1.2 g/dL, Range (1.2-2.2), Alkaline Phosphatase 112 U/L, Range (40-150), AST (SGOT) 26 U/L, Range (5-34), ALT (SGPT) 21 U/L, Range (0-55). (11:15 AGRE) B type Natriuretic Peptide Collection DT: WedNov 10, 2016 10:49, B type Natriuretic Peptide 23.4 pg/mL, Range (0-100). (11:29 JPAR) D-Dimer (Quantitative) Collection DT: WedNov 10, 2016 10:49, See comment below , Anticoagulant? NONE Medical Necessity SUSPECT COAGULOPATHY , D-Dimer Test 0.36 *mcg/mL, Range (0.27-0.43), * Reference Range Units: mcg/mL of fibrinogen equivalent, units(FEU) Based upon a retrospective study of [facility] patients in February 2006, a result of Less than 0.44 mcg/mL FEU is, predictive of the absence of a DVT or PE. . (11:29 JPAR) PTT Collection DT: WedNov 10, 2016 10:49, See comment below , Anticoagulant? NONE Medical Necessity SUSPECT COAGULOPATHY , PTT 33.6 SEC, Range (22.9-36.1). (11:29 JPAR) Protime with INR Collection DT: WedNov 10, 2016 10:49, See comment below , Anticoagulant? NONE Medical Necessity SUSPECT COAGULOPATHY , Prothrombin Time 12.9 SEC, Range (12.0-14.7), INR-International Normal Ratio 1.0 , ATTENTION: READ CAREFULLY , The, recommended therapeutic ranges for oral anticoagulant treatments are: , , Low Intensity: 1.5 - 2.0 Moderate Intensity: 2.0, - 3.0 High Intensity (1): 2.5 - 3.5 High, Intensity (2): 3.0 - 4.0 CRITICAL: >, 4.0 . (11:29 JPAR) Garner: PEYTON=MD Taj, Alejandro YI=TONY [place] JPAR=SRAVANI Fuller, Fredo &a-1R&a+25V*p+0X*u8620J*c202B*c15G*c2P*p-0X&a-25V&a+1R Name: Bull Pratt : 1955 M61 MedRec: [id number] AcctNum: [id number] Prepared: WedNov 10, 2016 14:42 by Interface Page 13 of 13 pMD MTDD
== END 2016-11-10 12:50 | disposition short-term general hospital (02) ==
LOC: NAV ERS 10:15
DX: R07.2 Precordial pain (principal); E78.5 Hyperlipidemia, unspecified; E78.00 Pure hypercholesterolemia, unspecified; I10 Essential (primary) hypertension; F17.210 Nicotine dependence, cigarettes, uncomplicated; Z79.899 Other long term (current) drug therapy
CPT/HCPCS: 71010; 80053; 82553; 83880; 84484; 85025; 85379; 85610; 85730; 93005

== ENCOUNTER 2021-07-12 23:55 | Emergency (ER) | payer MEDICARE ==
[~2021-07-12 23:55] MED LIST: Iopamidol 370 76% 100 ML VIAL ONE
[2021-07-13] MEDS ORDERED: Morphine 4 MG/ML VIAL ONE ×2 (01:42→03:35)
[2021-07-13] MEDS ORDERED: Ondansetron ODT 4 MG TAB ONE (01:42)
[2021-07-13] MEDS ORDERED: Pancrelipase DR 12,000 1 CAP PER TUBE SCH (02:15)
[2021-07-13] MEDS ORDERED: Sodium Bicarbonate Tab 325 MG TAB PER TUBE SCH (02:15)
[2021-07-13] MEDS ORDERED: Ondansetron PF 4 MG/2 ML Vial ONE (03:35)
[2021-07-13 03:50] LABS: #Basophils 0.1 thou/uL (0.0-0.2); #Eosinphils 0.1 thou/uL (0.0-0.7); #Lymphocytes 3.8 thou/uL (1.20-3.40); #Monocytes 0.6 thou/uL (0.11-0.59); #Neutrophils 5.9 thou/uL (1.40-6.50); %Eosinophils 1.2 % (0.0-10.0); %Lymphocytes 36.2 % (21.0-51.0); %Monocytes 5.6 % (0.0-10.0); Hemoglobin 12.1 g/dL (14.0-18.0); Mean Corpuscular HGB CONC 32.1 g/dL (32.0-36.0); Mean Corpuscular Hemoglobin 30.3 pg (27.0-31.0); Mean Corpuscular Volume 94.3 fL (78.0-98.0); Mean Platelet Volume 8.1 fL (7.4-10.4); Platelet Count 230 thou/uL (130-400); RBC Distribution Width 13.6 % (11.5-14.5); Red Blood Cell (RBC) Count 3.98 mill/uL (4.70-6.10); White Blood Cell (WBC) Count 10.4 thou/uL (4.8-10.8)
[2021-07-13 04:07] LABS: Anion Gap 15 mmol/L (10-20); BUN (Urea Nitrogen) 20 mg/dL (8.4-25.7); Calc. Creatinine Clearance 0 mL/min (70-130); Carbon Dioxide 22 mmol/L (23-31); Chloride 107 mmol/L (98-107); Potassium 4.7 mmol/L (3.5-5.1); Sodium 139 mmol/L (136-145)
[2021-07-13 04:08] LABS: ALT (SGPT) 53 U/L (8-55); AST (SGOT) 62 U/L (5-34); Albumin 3.3 g/dL (3.4-4.8); Alkaline Phosphatase 297 U/L (40-110); Bilirubin, Total 0.3 mg/dL (0.2-1.2); Calcium 9.7 mg/dL (7.8-10.44); Globulin 4.2 g/dL (2.4-3.5); Glucose 102 mg/dL (80-115); Lipase 62 U/L (8-78); Protein, Total 7.5 g/dL (5.8-8.1)
[2021-07-13] MEDS ORDERED: Fentanyl 100 MCG/2 ML VIAL ONE ×2 (04:43→07:09)
[2021-07-13 05:06] LABS: SARS-CoV-2 NAA Rapid Test Not Detected (NotDetected)
== END 2021-07-13 08:25 | disposition short-term general hospital (02) ==
LOC: NAV ERS 23:55
DX: K94.13 Enterostomy malfunction (principal); E78.5 Hyperlipidemia, unspecified; E78.00 Pure hypercholesterolemia, unspecified; I10 Essential (primary) hypertension; F17.210 Nicotine dependence, cigarettes, uncomplicated; Z20.822 Contact with and (suspected) exposure to COVID-19; Z79.899 Other long term (current) drug therapy
CPT/HCPCS: 36415; 74177; 80053; 83690; 85025; 96372; 96374; 96375; 96376; J2270; J2405; J3010; Q0162; Q9967; U0002

== ENCOUNTER 2022-03-03 10:24 | Outpatient (CLI) | payer MEDICARE ==
[2022-03-03 11:23] LABS: #Basophils 0.2 thou/uL (0.0-0.2); #Eosinphils 0.4 thou/uL (0.0-0.7); #Lymphocytes 3.2 thou/uL (1.20-3.40); #Monocytes 0.7 thou/uL (0.11-0.59); #Neutrophils 9.8 thou/uL (1.40-6.50); %Basophils 1.3 % (0.0-1.0); %Eosinophils 2.9 % (0.0-10.0); %Lymphocytes 22.1 % (21.0-51.0); %Neutrophils 68.7 % (42.0-75.0); Hemoglobin 9.2 g/dL (14.0-18.0); Mean Corpuscular HGB CONC 29.5 g/dL (32.0-36.0); Mean Corpuscular Hemoglobin 28.7 pg (27.0-31.0); Mean Corpuscular Volume 97.4 fL (78.0-98.0); Mean Platelet Volume 7.4 fL (7.4-10.4); Platelet Count 1160 thou/uL (130-400); RBC Distribution Width 14.6 % (11.5-14.5); Red Blood Cell (RBC) Count 3.21 mill/uL (4.70-6.10); White Blood Cell (WBC) Count 14.3 thou/uL (4.8-10.8)
[2022-03-03 11:29] LABS: Anion Gap 20 mmol/L (10-20); BUN (Urea Nitrogen) 23 mg/dL (8.4-25.7); Calc. Creatinine Clearance 0 mL/min (70-130); Calcium 9.1 mg/dL (7.8-10.44); Carbon Dioxide 20 mmol/L (23-31); Chloride 109 mmol/L (98-107); Glucose 94 mg/dL (80-115); Potassium 5.3 mmol/L (3.5-5.1); Sodium 144 mmol/L (136-145)
[2022-03-03 11:30] LABS: Follow-up Chemistry Comp? YES; Follow-up Hematology Comp? YES; Follow-up Result - Chemistry REPORT FAXED; Follow-up Result - Hematology REPORT FAXED
== END 2022-03-03 10:25 | disposition home or self-care (01) ==
LOC: NAV LABSP 10:24
PROVIDERS: ATTEND Family Medicine
DX: K22.9 Disease of esophagus, unspecified (principal); R65.10 Systemic inflammatory response syndrome (SIRS) of non-infectious origin without acute organ dysfunction
CPT/HCPCS: 80048; 85025

== ENCOUNTER 2022-03-04 08:20 | Outpatient (CLI) | payer MEDICARE ==
[2022-03-04 08:39] LABS: Follow-up Chemistry Comp? YES; Follow-up Result - Chemistry REPORT FAXED
[2022-03-04 09:04] LABS: Vancomycin, Trough 15.6 ug/mL
== END 2022-03-04 08:21 | disposition home or self-care (01) ==
LOC: NAV LABSP 08:20
PROVIDERS: ATTEND Family Medicine
DX: K22.0 Achalasia of cardia (principal); R65.10 Systemic inflammatory response syndrome (SIRS) of non-infectious origin without acute organ dysfunction
CPT/HCPCS: 80202